=== PATIENT | female | born 1945 | race Caucasian/White ===

== ENCOUNTER → 2018-10-16 | Outpatient (CLI) | payer MEDICARE | END | disposition home or self-care (01) | LOC: CFH 14:59 | PROVIDERS: ATTEND Orthopaedic Surgery | DX: M43.16 Spondylolisthesis, lumbar region (principal); M47.816 Spondylosis without myelopathy or radiculopathy, lumbar region | CPT/HCPCS: 72110 ==

== ENCOUNTER 2019-03-30 10:45 | Day surgery (SDC) | payer MEDICARE ==
[~2019-03-30] VITALS: Ht 167.6 cm; Wt 104.5 kg
[~2019-03-30 10:45] MED LIST: ACET-1600 PO; BACITRACIN 50,000 UNIT ONE; BUPIVACAINE/PF 0.5% ONE; THROMBIN 5,000 UNIT VIAL TP ONE; [UNRECOGNIZED DRUG - OTHER] PO
[2019-03-30 11:11] VITALS: BP 122/79
[2019-03-30] MEDS ORDERED: GABAPENTIN 300 MG CAPSULE PO ONE (11:30)
[2019-03-30] MEDS ORDERED: ACETAMINOPHEN 500 MG TABLET PO ONE (11:30)
[2019-03-30] MEDS: LACTATED RINGERS 1,000 ML IV SCH ×2 (11:41→17:40)
[2019-03-30] MEDS ORDERED: FENTANYL PF 250 MCG/5ML ONE (11:50)
[2019-03-30] MEDS ORDERED: PROPOFOL 50 ML ONE ×2 (12:03→14:34)
[2019-03-30] MEDS ORDERED: BUPIVACAINE LIPOSOME/PF 10ML INFIL ONE ×2 (13:32→13:36)
[2019-03-30] MEDS ORDERED: PHENYLEPHRINE 10 MG/ML ONE (13:39)
[2019-03-30] MEDS ORDERED: LIDOCAINE 2% 100MG/5ML SYRINGE ONE (13:39)
[2019-03-30] MEDS ORDERED: EPINEPHRINE 1 MG/ML, 1ML INFIL ONE (14:07)
[2019-03-30] MEDS ORDERED: VANCOMYCIN 1,000 MG IM ONE (14:08)
[2019-03-30] MEDS ORDERED: FENTANYL PF 100 MCG/2ML IV PRN (14:30)
[2019-03-30] MEDS ORDERED: METOPROLOL 1 MG/ML, 5ML IV PRN (14:30)
[2019-03-30] MEDS ORDERED: MIDAZOLAM 1 MG/ML, 2ML IV PRN (14:30)
[2019-03-30] MEDS ORDERED: HYDROmorphone 2 MG/ML, 1ML IVPush PRN (14:30)
[2019-03-30] MEDS ORDERED: ALBUTEROL/IPRATROPIUM 2.5MG/0.5MG, 3 ML NPPB PRN (14:30)
[2019-03-30] MEDS ORDERED: DIAZEPAM 5 MG/ML, 2ML IVPush PRN (14:30)
[2019-03-30] MEDS ORDERED: PROMETHAZINE 25 MG/ML, 1ML IV PRN (14:30)
[2019-03-30] MEDS ORDERED: hydrALAzine 20 MG/ML, 1ML IV PRN (14:30)
[2019-03-30] MEDS ORDERED: OXYcodone 5 MG/5 ML ORAL.SOL UDC PO PRN (14:30)
[2019-03-30] MEDS ORDERED: PROPOFOL 10 MG/ML, 20ML ONE (14:35)
[2019-03-30] MEDS ORDERED: SUCCINYLCHOLINE 20 MG/ML, 10ML ONE (14:35)
[2019-03-30] MEDS ORDERED: DEXAMETHASONE 4 MG/ML, 1ML ONE (14:35)
[2019-03-30] MEDS ORDERED: CEFAZOLIN 1,000 MG ONE (14:35)
[2019-03-30] MEDS ORDERED: ONDANSETRON 2MG/ML, 2ML ONE (14:35)
[2019-03-30] MEDS ORDERED: ROCURONIUM 10MG/ML,5ML ONE (14:35)
[2019-03-30] MEDS ORDERED: BUPIVACAINE 0.25% ONE (14:36)
[2019-03-30] MEDS ORDERED: BUPIVACAINE/PF 0.25% ONE (14:36)
[2019-03-30] MEDS ORDERED: FENTANYL PF 100 MCG/2ML ONE (14:54)
[2019-03-30] MEDS ORDERED: VANCOMYCIN 1,000 MG ONE (15:33)
[2019-03-30] MEDS ORDERED: DIAZEPAM 5 MG/ML, 2ML ONE (15:36)
[2019-03-30] MEDS ORDERED: NS + 20MEQ KCL 1,000 ML IV SCH (16:00)
[2019-03-30] MEDS ORDERED: PROMETHAZINE 25 MG/ML, 1ML IM PRN (16:00)
[2019-03-30] MEDS ORDERED: ONDANSETRON 2MG/ML, 2ML IVPush PRN (16:00)
[2019-03-30] MEDS ORDERED: CYCLOBENZAPRINE 10 MG TABLET PO PRN (16:00)
[2019-03-30] MEDS ORDERED: SENNA/DOCUSATE TABLET PO PRN (16:00)
[2019-03-30] MEDS ORDERED: HYDROcodone/APAP 10/325 MG TABLET PO PRN (16:00)
[2019-03-30] MEDS ORDERED: morphine SULFATE 10 MG/ML, 1ML IVPush PRN (16:00)
[2019-03-30] MEDS ORDERED: METHOCARBAMOL 750 MG TABLET PO PRN (16:00)
[2019-03-30] MEDS ORDERED: OXYcodone/APAP 5/325MG TABLET PO PRN (16:00)
[2019-03-30] MEDS ORDERED: PHARMACY MAY ADJ FOR RENAL FX MC PRN (16:00)
[2019-03-30] MEDS ORDERED: MAGNESIUM HYDROXIDE 8%, 30ML UDC PO PRN (16:00)
[2019-03-30] MEDS ORDERED: DIPHENHYDRAMINE 50 MG/ML, 1ML IVPush PRN (16:00)
[2019-03-30] MEDS: HYDROcodone/APAP 5/325 TABLET PO PRN ×2 (18:29→19:55)
[2019-03-30 19:59] VITALS: BP 117/79
[2019-03-30] MEDS: SODIUM CHLORIDE FLUSH 10ML SYR IVF SCH (21:00)
[2019-03-30] MEDS: CEFAZOLIN PMX 1GM/50ML 50 ML IVPB SCH (22:07)
[2019-03-31 01:59] VITALS: BP 102/73
[2019-03-31] MEDS: HYDROcodone/APAP 5/325 TABLET PO PRN ×2 (02:15→06:11)
[2019-03-31] MEDS: CEFAZOLIN PMX 1GM/50ML 50 ML IVPB SCH (05:38)
[2019-03-31 08:33] VITALS: BP 111/71
[2019-03-31] MEDS: SODIUM CHLORIDE FLUSH 10ML SYR IVF SCH (09:00)
[2019-03-31] MEDS ORDERED: HYDR-3240 PO (09:22)
[2019-03-31] MEDS ORDERED: CEPH-368 PO (09:23)
[2019-03-31] MEDS ORDERED: CYCL-259 PO (09:23)
== END 2019-03-31 12:15 | disposition home or self-care (01) ==
LOC: OUT 10:45 → UNDOADMIN 15:40 → ORIP 15:40 → 4NE 16:30 → DCLOUNGE 03-31 12:06 → UNDODISIN 03-31 12:15 → OUT 03-31 12:15
PROVIDERS: ATTEND Neurological Surgery
DX: M48.062 Spinal stenosis, lumbar region with neurogenic claudication (principal); M43.16 Spondylolisthesis, lumbar region; M54.16 Radiculopathy, lumbar region; M19.90 Unspecified osteoarthritis, unspecified site; E66.9 Obesity, unspecified; Z79.891 Long term (current) use of opiate analgesic; Z79.899 Other long term (current) drug therapy; Z87.891 Personal history of nicotine dependence; Z96.651 Presence of right artificial knee joint; Z98.890 Other specified postprocedural states; Y92.89 Other specified places as the place of occurrence of the external cause; Y93.89 Activity, other specified; Y99.8 Other external cause status
CPT/HCPCS: 63042; 72100 ×2; 97165; G0378; J0171 ×2; J0330; J0690 ×2; J1100 ×2; J2370; J2405 ×2; J2704 ×2; J3010 ×2; J3360 ×2; J3370 ×2; J3480 ×2; J3490 ×2; J7120